=== PATIENT | female | born 2000 | race African-American/Black ===

== ENCOUNTER 2020-01-04 19:52 | Inpatient (IN) ==
[2020-01-04 21:13] LABS: Basophils # 0.1 10*3/uL (0.0-0.2); Basophils % 0.3 % (0.0-0.8); Hematocrit 41.5 VOL% (35.7-47.0); Hemoglobin 13.6 GM/DL (12.0-16.0); Immature Granulocytes % 0.8 %; Immature Granulocytes Absolute 0.22 #; Lymphocytes # 1.7 10*3/uL (1.4-4.0); Lymphocytes % 6.5 % (21.3-54.2); Mean Corpuscular HGB Conc 32.8 GM/DL (32-36); Mean Corpuscular Volume 95.6 FL (87-102); Mean Platelet Volume 10.4 FL (9.6-12.0); Monocytes % 10.3 % (1.7-12.7); Neutrophils % 82.1 % (38.7-73.9); Platelet Count 252 T/CUMM (130-400); Red Blood Count 4.34 MC/CUMM (3.8-5.5); Red Cell Distribution Width 12.1 % (9.3-17.3); White Blood Count 26.2 T/CUMM (4-12)
[2020-01-04] MEDS: SODIUM CHLORIDE 0.9% 500 ML IV STA (21:24)
[2020-01-04] MEDS: MORPHINE 4 MG/1 ML VIAL IV STA (21:25)
[2020-01-04 21:29] LABS: INR 1.1; PT Patient Result 11.6 SECS (9.8-11.9)
[2020-01-04 21:36] LABS: Albumin 3.1 G/DL (3.4-5.0); Bilirubin,Total 0.8 MG/DL (0.2-1.0); Calcium 8.9 MG/DL (8.5-10.1); Osmolality,Calculated 265.4 MOS/KG (273-304); Total Protein 9.1 G/DL (6.4-8.3)
[2020-01-04 21:48] LABS: Lymphocytes 5 % (20-55); Segmented Neutrophils 89 % (50-85)
[2020-01-04 21:49] LABS: Platelet Estimate Normal; Total Cells Counted 100
[2020-01-04] MEDS ORDERED: CLINDAMYCIN INJ 50 ML IV ONE (22:00)
[2020-01-04] MEDS ORDERED: diphenhydrAMINE 50 MG/1 ML VIAL IV PRN (22:31)
[2020-01-04] MEDS ORDERED: KETOROLAC 30 MG/1 ML VIAL IV PRN (22:31)
[2020-01-04] MEDS ORDERED: ONDANSETRON 4 MG/2 ML VIAL IV PRN (22:31)
[2020-01-04] MEDS ORDERED: HYDROcod/ACETAMIN 7.5-325 MG/15 ML UDCUP PO STA (22:35)
[2020-01-04] MEDS ORDERED: propofoL 200 MG/20 ML VIAL IV ONE (22:54)
[2020-01-04] MEDS ORDERED: fentaNYL 100 MCG/2 ML VIAL ONE (22:55)
[2020-01-04] MEDS ORDERED: LIDOCAINE 2% 5 ML VIAL ONE (22:55)
[2020-01-04] MEDS ORDERED: MIDAZOLAM 2 MG/2 ML VIAL ONE (22:55)
[2020-01-04] MEDS ORDERED: DEXAMETHASONE 4 MG/1 ML VIAL ONE ×2 (22:55→22:56)
[2020-01-04] MEDS ORDERED: ONDANSETRON 4 MG/2 ML VIAL ONE (22:56)
[2020-01-04] MEDS ORDERED: LACTATED RINGERS 1,000 ML IV ONE (22:56)
[2020-01-04] MEDS ORDERED: SEVOFLURANE 1 UNIT/15 MINUTE INH ONE (22:56)
[2020-01-04] MEDS ORDERED: SUCCINYLCHOLINE 200 MG/10 ML VIAL ONE (22:56)
[2020-01-04] MEDS ORDERED: LACTATED RINGERS 1,000 ML IV SCH (23:00)
[2020-01-05] MEDS: MORPHINE 4 MG/1 ML VIAL IV STA (00:42)
[2020-01-05] MEDS: SODIUM CHLORIDE 0.9% 500 ML IV STA (00:42)
[2020-01-05] MEDS ORDERED: VANCOMYCIN INJ 1,000 MG in SODIUM CHLORIDE 0.9% 250 ML IV SCH (01:00)
[2020-01-05] MEDS ORDERED: METRONIDAZOLE IV ONE (01:13)
[2020-01-05 02:20] LABS: Basophils # 0.1 10*3/uL (0.0-0.2); Basophils % 0.3 % (0.0-0.8); Hematocrit 39.8 VOL% (35.7-47.0); Hemoglobin 12.9 GM/DL (12.0-16.0); Immature Granulocytes % 0.9 %; Immature Granulocytes Absolute 0.22 #; Lymphocytes # 0.5 10*3/uL (1.4-4.0); Lymphocytes % 1.9 % (21.3-54.2); Mean Corpuscular HGB Conc 32.4 GM/DL (32-36); Mean Corpuscular Volume 96.4 FL (87-102); Mean Platelet Volume 10.5 FL (9.6-12.0); Monocytes % 3.5 % (1.7-12.7); Neutrophils % 93.4 % (38.7-73.9); Platelet Count 233 T/CUMM (130-400); Red Blood Count 4.13 MC/CUMM (3.8-5.5); Red Cell Distribution Width 12.4 % (9.3-17.3); White Blood Count 25.8 T/CUMM (4-12)
[2020-01-05 03:19] LABS: Band Neutrophils 2 % (0-10); Lymphocytes 2 % (20-55); Platelet Estimate Normal; Segmented Neutrophils 93 % (50-85); Total Cells Counted 100
[2020-01-05] MEDS: CHLORHEXIDINE 0.12% ORAL RINSE 60 ML BOTTLE SWISH/SPIT SCH ×2 (03:31→09:52)
[2020-01-05 03:35] LABS: HIV Antigen/Antibody Result Nonreactive (Nonreactive)
[2020-01-05] MEDS: DEXAMETHASONE 4 MG/1 ML VIAL IV SCH ×2 (05:44→14:42)
[2020-01-05] MEDS: CLINDAMYCIN INJ 900 MG in PREMIX 1 EACH IV SCH ×2 (09:55→17:04)
[2020-01-05] MEDS: CLINDAMYCIN 300 MG CAPSULE PO SCH ×2 (13:02→17:36)
[2020-01-05 19:19] VITALS: BP 120/67
== END 2020-01-05 19:56 | disposition home or self-care (01) | DRG 133 ==
LOC: N.ED 19:52 → N.3E 21:40 → N.EDINP 22:31 → N.3E 23:50
PROVIDERS: ADMIT Otolaryngology; ATTEND Otolaryngology